=== PATIENT | female | born 1980 ===

== ENCOUNTER 2017-07-31 07:48 | Day surgery (SDC) | payer MEDICAID ==
[2016-11-29 17:21] VITALS: BMI 29.6
[2017-07-31] MEDS ORDERED: Lactated Ringer's 500 ML IV ONE (07:58)
[2017-07-31] MEDS ORDERED: Propofol 10 mg/ml Inj (20 ML) ONE (09:04)
[2017-07-31 09:26] VITALS: O2SAT 99
[2017-07-31 09:36] VITALS: BP 104/66; PULSE 67; RESP 20; TEMP 96.3
== END 2017-07-31 11:45 | disposition home or self-care (01) ==
LOC: H.ENDO 07:48
PROVIDERS: ATTEND Internal Medicine Gastroenterology
DX: R10.11 Right upper quadrant pain (principal); K29.50 Unspecified chronic gastritis without bleeding; K44.9 Diaphragmatic hernia without obstruction or gangrene
CPT/HCPCS: 43239; 88305; J2001; J2704; J7120